=== PATIENT | male | born 1985 | race Caucasian/White ===

== ENCOUNTER 2018-11-10 09:36 | Emergency (ER) | payer OTHER ==
[~2018-11-10] VITALS: Ht 175.3 cm; Wt 81.6 kg
--- OUTSIDE RECORDS SUMMARY | 2018-11-10 09:41 | XMS REPORT ---
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 Role Phone MISHA RAE Unavailable PROBLEMS No Known Problems ALLERGIES No Information ENCOUNTERS Encounter Location Date Diagnosis [facility] [id number] [address] Jun, [facility] [id number] [address] Jun, Dysfunction of both eustachian tubes H69.83 [facility] [id number] [address] Nov, Acute non-recurrent maxillary sinusitis J01.00 IMMUNIZATIONS No Known Immunizations SOCIAL HISTORY Never Assessed REASON FOR VISIT Refill request PLAN OF CARE VITAL SIGNS MEDICATIONS Unknown Medications RESULTS No Results PROCEDURES No Known procedures INSTRUCTIONS MEDICATIONS ADMINISTERED No Known Medications MEDICAL (GENERAL) HISTORY Type Description Date Surgical History teeth extraction...all...lower and upper 10/2016
--- OUTSIDE RECORDS SUMMARY | 2018-11-10 09:41 | XMS REPORT ---
Author Author MISHA RAE Organization [facility] Address [address] [place] [address] Care Team Providers Care Competency Evaluated Nurse Aide Name Role Phone MISHA RAE Unavailable PROBLEMS No Known Problems ALLERGIES No Known Allergies ENCOUNTERS Encounter Location Date Diagnosis [facility] [id number] [address] Jun, [facility] [id number] [address] Jun, Dysfunction of both eustachian tubes H69.83 [facility] [id number] [address] Nov, Acute non-recurrent maxillary sinusitis J01.00 IMMUNIZATIONS No Known Immunizations SOCIAL HISTORY Never Assessed REASON FOR VISIT Ear pain-SUSHMA kim, patient complaining of ear pain in both ears started a week ago PLAN OF CARE Activity Details Follow Up prn Reason: VITAL SIGNS Height 69 in 2018-06-22 Weight 186.4 lbs 2018-06-22 Temperature 97.392 degrees Fahrenheit 2018-06-22 Respiratory Rate 20 2018-06-22 Oximetry on room air:96 % 2018-06-22 BMI 27.52 kg/m2 2018-06-22 Blood pressure systolic 120 mmHg 2018-06-22 Blood pressure diastolic 74 mmHg 2018-06-22 MEDICATIONS Medication Instructions Dosage Frequency Start Date End Date Duration Status PredniSONE 20 mg Orally Once a day 2 tablets 24h Jun, 5 days Active RESULTS No Results PROCEDURES No Known procedures INSTRUCTIONS MEDICATIONS ADMINISTERED No Known Medications MEDICAL (GENERAL) HISTORY Type Description Date Surgical History teeth extraction...all...lower and upper 10/2016
[2018-11-10] MEDS ORDERED: LACTATED RINGERS 1,000 ML IV ONE (09:47)
--- NOTE | 2018-11-10 09:47 | ED Abdominal Pain ---
General Chief Complaint: Abdominal/GI Problems Stated Complaint: LOWER BACK PAIN;TROUBLE URINATING Source of Information: Patient, Other (girlfriend) Exam Limitations: No Limitations History of Present Illness Date Seen by Provider: Nov 10, 2018 Time Seen by Provider: 09:38 Initial Comments The patient presents to ER by private conveyance with chief complaint that he was woke up about 6:00 this morning some right flank and back pain radiating towards his umbilicus and down into his right groin. He is been unable to urinate today. He did have a normal bowel movement today no diarrhea or constipation. No history of abdominal surgeries, IBS, IBD, kidney stones. He has not taken anything for the pain yet. 7 nausea without vomiting. Poor oral intake this morning. He does feel thirsty. No fevers but he has had some chills. No cough chest pain shortness of breath. No history of medical problems nor does he take any medicines routinely. Allergies and Home Medications Allergies Coded Allergies: No Known Drug Allergies (Unverified , 11/10/18) Patient Home Medication List Home Medication List Reviewed: Yes Review of Systems Review of Systems Constitutional: chills; No fever, No malaise EENTM: No Blurred Vision, No Double Vision Respiratory: Denies Cough, Denies Shortness of Air Cardiovascular: Denies Chest Pain, Denies Edema Gastrointestinal: See HPI, Abdominal Pain; Denies Constipated, Denies Diarrhea ; Nausea, Poor Fluid Intake; Denies Vomiting Genitourinary: Denies Burning, Denies Discharge, Denies Drainage Musculoskeletal: back pain (right flank and back); No joint pain Past Uccnmwa-Sdfjdk-Yhwpcj Hx Patient Social History Alcohol Use: Occasionally Uses Alcohol Beverage of Choice: Cheap Liquor Recreational Drug Use: No Smoking Status: Current Everyday Smoker Type Used: Cigarettes (1 ppd) Recent Foreign Travel: No Contact w/Someone Who Travel: No Physical Exam Vital Signs Vital Signs - First Documented 11/10/18 09:43 Temp 95.5 Pulse 86 Resp 20 B/P (MAP) 141/85 (103) Pulse Ox 99 Capillary Refill : Height/Weight/BMI Height: '" Weight: lbs. oz. kg; BMI Method: General Appearance: WD/WN, moderate distress (restless, uncomfortable) HEENT: PERRL/EOMI, pharynx normal (mildly dry) Respiratory: no respiratory distress, no accessory muscle use Cardiovascular: normal peripheral pulses, regular rate, rhythm, no edema; No tachycardia Peripheral Pulses: 2+ Radial Pulses (R), 2+ Radial Pulses (L) Gastrointestinal: normal bowel sounds, soft; No guarding, No rebound; tenderness (right lower quadrant. No rebound tenderness over McBurney's point or Rovsing sign. Psoas sign positive on the right.) Back: normal inspection, no vertebral tenderness, CVA tenderness (R) Neurologic/Psychiatric: alert, oriented x 3 Skin: normal color, warm/dry Progress/Results/Core Measures Results/Orders Lab Results Laboratory Tests Test 11/10/18 10:43 Range/Units Urine Color YELLOW Urine Clarity SLIGHTLY CLOUDY Urine pH 5 5-9 Urine Specific [place] 1.025 H 1.016-1.022 Urine Protein 1+ H NEGATIVE Urine Glucose (UA) NEGATIVE NEGATIVE Urine Ketones NEGATIVE NEGATIVE Urine Nitrite NEGATIVE NEGATIVE Urine Bilirubin NEGATIVE NEGATIVE Urine Urobilinogen NORMAL NORMAL MG/DL Urine Leukocyte Esterase 1+ H NEGATIVE Urine RBC (Auto) 4+ H NEGATIVE Urine RBC 2-5 H /HPF Urine WBC 2-5 /HPF Urine Squamous Epithelial Cells RARE /HPF Urine Crystals NONE /LPF Urine Bacteria TRACE /HPF Urine Casts NONE /LPF Urine Mucus LARGE H /LPF Urine Culture Indicated NO Urine Opiates Screen NEGATIVE NEGATIVE Urine Oxycodone Screen NEGATIVE NEGATIVE Urine Methadone Screen NEGATIVE NEGATIVE Urine Propoxyphene Screen NEGATIVE NEGATIVE Urine Barbiturates Screen NEGATIVE NEGATIVE Ur Tricyclic Antidepressants Screen NEGATIVE NEGATIVE Urine Phencyclidine Screen NEGATIVE NEGATIVE Urine Amphetamines Screen NEGATIVE NEGATIVE Urine Methamphetamines Screen NEGATIVE NEGATIVE Urine Benzodiazepines Screen NEGATIVE NEGATIVE Urine Cocaine Screen NEGATIVE NEGATIVE Urine Cannabinoids Screen NEGATIVE NEGATIVE My Orders Orders - SHAILESH LARA Ct Abd/Pelvis Wo(Kidney Stone) (11/10/18 09:47) Abdomen/Kub 1view (11/10/18 09:47) Saline Lock/Iv-Start (11/10/18 09:47) Lactated Ringers (Lr 1000 Ml Iv Solution (11/10/18 09:47) Ua Culture If Indicated (11/10/18 09:47) Drug Screen Stat (Urine) (11/10/18 09:47) Ondansetron Injection (Zofran Injectio (11/10/18 10:00) Ketorolac Injection (Toradol Injection) (11/10/18 10:00) Medications Given in ED Current Medications Medications Dose Ordered Sig/Eric Route Start Time Stop Time Status Last Admin Dose Admin Ketorolac Tromethamine 30 mg ONCE ONCE IVP 11/10/18 10:00 11/10/18 10:01 DC 11/10/18 10:06 30 MG Lactated Ringer's 1,000 ml @ 0 mls/hr Q0M ONCE IV 11/10/18 09:47 11/10/18 09:49 DC 11/10/18 10:07 0 MLS/HR Ondansetron HCl 4 mg ONCE ONCE IVP 11/10/18 10:00 11/10/18 10:01 DC 11/10/18 10:07 4 MG Vital Signs/I&O 11/10/18 09:43 Temp 95.5 Pulse 86 Resp 20 B/P (MAP) 141/85 (103) Pulse Ox 99 Progress Progress Note : Time: 09:52 Progress Note Patient presents classically like a kidney stone. We'll obtain urine establish IV given him a liter fluids since he appears to be dry clinically and get a CT and x-ray. Toradol and Zofran. Diagnostic Imaging Diagonstic Imaging: CT (noncontrast) Plain Films/CT/US/NM/MRI: abdomen, pelvis Comments NAME: KERRY SKINNER [facility] REC#: [id number] PHYSICIAN: SHAILESH LARA MD CC: CHAYITO MATHEW; SHAILESH LARA Page 1 of 1 RADIOLOGY REPORT [facility] [place] CC: CHAYITO MATHEW; SHAILESH LARA Page 1 of 1 RADIOLOGY REPORT NAME: SUSANNE,KERRY [facility] REC#: [id number] PT STATUS: REG ER : 1985 PHYSICIAN: SHAILESH LARA MD ADMIT DATE: 11/10/18/ER Signed Date of Exam: 11/10/18 CT ABD/PELVIS WO(KIDNEY STONE) PROCEDURE: CT urinary tract, rule out kidney stone. TECHNIQUE: Multiple contiguous axial images were obtained through the abdomen and pelvis without the use of intravenous contrast. INDICATION: Back, right lower quadrant flank pain. COMPARISON: None. FINDINGS: There is a 2 mm obstructive stone in the right UVJ with resultant mild right-sided hydronephrosis and hydroureter. The left kidney and ureter are unremarkable. Urinary bladder is intact. Lung bases are clear. The gallbladder and remainder of the solid organs, vascular structures and bowel are normal. The appendix is normal. Osseous structures are age-appropriate. IMPRESSION: Mild right-sided hydronephrosis and hydroureter secondary to an obstructive 2 mm stone in the right UVJ. Dictated by: Dictated on workstation # [id number] Dict: 11/10/18 1037 Trans: 11/10/18 1103 Interpreted by: CHAYITO MATHEW Electronically signed by: CHAYITO MATHEW 11/10/18 110 Reviewed: Reviewed by Me Diagonstic Imaging: Xray Plain Films/CT/US/NM/MRI: abdomen (1 view KUB), pelvis Comments NAME: KERRY SKINNER [facility] REC#: [id number] PHYSICIAN: SHAILESH LARA MD CC: CHAYITO MATHEW; SHAILESH LARA Page 1 of 1 RADIOLOGY REPORT [facility] [place] CC: CHAYITO MATHEW; SHAILESH LARA Page 1 of 1 RADIOLOGY REPORT NAME: KERRY SKINNER [facility] REC#: [id number] PT STATUS: REG ER : 1985 PHYSICIAN: SHAILESH LARA MD ADMIT DATE: 11/10/18/ER Signed Date of Exam: 11/10/18 ABDOMEN/KUB 1VIEW INDICATION: Right flank pain COMPARISON: None FINDINGS: Single view of the abdomen demonstrates nondistended bowel gas pattern. There are no abnormal calcifications. There is no free air. IMPRESSION: Negative KUB Dictated by: Dictated on workstation # [id number] Dict: 11/10/18 1041 Trans: 11/10/18 1103 Interpreted by: CHAYITO MATHEW Electronically signed by: CHAYITO MATHEW 11/10/18 1103 Reviewed: Reviewed by Me Departure Impression Primary Impression: Right ureteral calculus Disposition: HOME, SELF-CARE Condition: Improved Departure-Patient Inst. Decision time for Depature: 11:16 Referrals: NO,LOCAL PHYSICIAN (PCP) Primary Care Physician EVELIO RUIZ MD Patient Instructions: Kidney Stones (DC) Add. Discharge Instructions: Drink lots of fluids. Caffeine is encouraged. Use ibuprofen 800 mg every 8 hours for pain. If you have breakthrough pain you can use the hydrocodone one to 2 tablets every 6 hours as needed however will cause constipation and drowsiness. Use MiraLAX to help break through the constipation. Take the Flomax every day until you pass the stone. Strain every urine to try and catch the stone. You can take it to your primary care doctor or the urologist to have it tested to find out what kind of stone it is which will help guide you in preventing them in the future. Is not unusual to have some blood tinged urine or pain for one to 2 days after the stone passes. Sometimes the stone will breakup into a fine sand and you'll never catch it in the strainer. Take the Keflex one capsule twice a day with food prevent urinary tract infection for the next week starting tomorrow. If you have any nausea you can take Zofran place under the tongue and allow it to absorb every 6 hours as needed. Follow-up with Dr. Ruiz, urology as needed by calling his office and requesting an appointment. All discharge instructions reviewed with patient and/or family. Voiced understanding. Scripts Cephalexin (Cephalexin) 500 Mg Tablet 500 MG PO BID for 7 Days, #14 TAB 0 Refills Prov: SHAILESH LARA 11/10/18 Tamsulosin HCl (Flomax) 0.4 Mg Cap 0.4 MG PO DAILY for 7 Days, #7 CAP 0 Refills Prov: SHAILESH LARA 11/10/18 Ondansetron (Ondansetron Odt) 4 Mg Tab.rapdis 4 MG PO Q6H PRN for NAUSEA/VOMITING, #8 TAB 0 Refills Prov: SHAILESH LARA 11/10/18 Hydrocodone Bit/Acetaminophen (Hydrocodone/Acetaminophen 5/325mg Tablet) 1 Tab Tab 1-2 EACH PO Q6H PRN for BREAKTHROUGH PAIN MDD 10, #15 TAB 0 Refills Prov: SHAILESH LARA 11/10/18 Work/School Note: Work Release Form Date Seen in the Emergency Department: Nov 10, 2018 Return to Work: Nov 11, 2018 Restrictions: No Restrictions Copy Copies To 1: EVELIO RUIZ MD, TITUS J Nov 10, 2018 09:47
[2018-11-10] MEDS ORDERED: KETOROLAC 30 MG/ML VIAL IVP ONE (10:00)
[2018-11-10] MEDS ORDERED: ONDANSETRON 4 MG/2 ML (SDV) Z0FRAN IVP ONE (10:00)
--- NOTE | 2018-11-10 10:43 | Diagnostic Imaging Report ---
PROCEDURE: CT urinary tract, rule out kidney stone. TECHNIQUE: Multiple contiguous axial images were obtained through the abdomen and pelvis without the use of intravenous contrast. INDICATION: Back, right lower quadrant flank pain. COMPARISON: None. FINDINGS: There is a 2 mm obstructive stone in the right UVJ with resultant mild right-sided hydronephrosis and hydroureter. The left kidney and ureter are unremarkable. Urinary bladder is intact. Lung bases are clear. The gallbladder and remainder of the solid organs, vascular structures and bowel are normal. The appendix is normal. Osseous structures are age-appropriate. IMPRESSION: Mild right-sided hydronephrosis and hydroureter secondary to an obstructive 2 mm stone in the right UVJ. Dictated by: Dictated on workstation # [id number]
--- NOTE | 2018-11-10 10:52 | Diagnostic Imaging Report ---
INDICATION: Right flank pain COMPARISON: None FINDINGS: Single view of the abdomen demonstrates nondistended bowel gas pattern. There are no abnormal calcifications. There is no free air. IMPRESSION: Negative KUB Dictated by: Dictated on workstation # [id number]
[2018-11-10 11:00] LABS: BACTERIA,URINE TRACE /HPF; BILIRUBIN,URINE NEGATIVE (NEGATIVE); CLARITY,URINE SLIGHTLY CLOUDY; COLOR,URINE YELLOW; GLUCOSE, URINE (UA) NEGATIVE (NEGATIVE); KETONES,URINE NEGATIVE (NEGATIVE); LEUKOCYTE ESTERASE ,URINE 1+ (NEGATIVE); NITRITE,URINE NEGATIVE (NEGATIVE); PH,URINE 5 (5-9); PROTEIN,URINE 1+ (NEGATIVE); UROBILINOGEN,URINE NORMAL (NORMAL)
[2018-11-10 11:01] LABS: SQUAMOUS EPITHELIAL CELL,UR RARE /HPF
[2018-11-10 11:03] LABS: AMPHETAMINE SCREEN, URINE NEGATIVE (NEGATIVE); BARBITURATE SCREEN URINE NEGATIVE (NEGATIVE); BENZODIAZEPINES SCREEN URINE NEGATIVE (NEGATIVE); CANNABINOID SCREEN, URINE NEGATIVE (NEGATIVE); COCAINE SCREEN URINE NEGATIVE (NEGATIVE); METHADONE STAT NEGATIVE (NEGATIVE); METHAMPHETAMINE SCREEN URINE S NEGATIVE (NEGATIVE); OPIATE SCREEN URINE NEGATIVE (NEGATIVE); OXYCODONE STAT NEGATIVE (NEGATIVE); PROPOXYPHENE STAT NEGATIVE (NEGATIVE); TRICYCLIC ANTIDEPRESSANTS SCRE NEGATIVE (NEGATIVE)
[2018-11-10] MEDS ORDERED: CEPH500T PO (11:27)
[2018-11-10] MEDS ORDERED: TAMS0.4C98 PO (11:27)
[2018-11-10] MEDS ORDERED: ACHD5005 PO (11:27)
[2018-11-10] MEDS ORDERED: ONDA4TAB11 PO (11:27)
[2018-11-10] MEDS ORDERED: cefTRIAXone FOR IV USE 1,000 MG in WATER (STERILE) FOR INJECTION 10 ML IV ONE (11:30)
[2018-11-10] MEDS ORDERED: HYDROcodone/APAP 5 MG/325 MG (LORTAB) TAB PO ONE (11:45)
[2018-11-10 11:51] VITALS: BP 145/91
== END 2018-11-10 11:51 | disposition home or self-care (01) ==
LOC: ER 09:38
DX: N13.2 Hydronephrosis with renal and ureteral calculous obstruction (principal); F17.210 Nicotine dependence, cigarettes, uncomplicated
CPT/HCPCS: 74018; 74176; 80306; 81000